=== PATIENT | male | born 1980 | race Two or more races ===

== ENCOUNTER 2024-08-28 19:37 | Emergency (ER) | payer OTHER, MEDICAID ==
[~2024-08-28] VITALS: Ht 167.6 cm; Wt 66.7 kg
[2024-08-28 21:16] VITALS: BP 137/93; TEMP 98.6; O2SAT 96
== END 2024-08-28 21:16 | disposition home or self-care (01) ==
LOC: ER 19:44
DX: S13.4XXA Sprain of ligaments of cervical spine, initial encounter (principal); S09.90XA Unspecified injury of head, initial encounter; F17.200 Nicotine dependence, unspecified, uncomplicated; V43.52XA Car driver injured in collision with other type car in traffic accident, initial encounter; Y93.89 Activity, other specified; Y92.410 Unspecified street and highway as the place of occurrence of the external cause; Y99.8 Other external cause status
CPT/HCPCS: 70450-TC; 72125-TC; 72131-TC